=== PATIENT | female | born 1965 | race Caucasian/White ===

== ENCOUNTER → 2018-06-16 | Outpatient (CLI) | payer BC ==
[~2018-06-16] MED LIST: ACEDIPPM PO; AMOX875 PO; CIPR500 PO; CODACE30; GABA100 PO; GABA300 PO; HYDACE10B PO; HYDACE5 PO; HYDACE7.5; HYDACE7.5 PO; HYDR1TAB94 PO; IBUP600 PO; LEVCAR50ER; LEVSOD100; LEVSOD100 PO; LEVSOD112; LEVSOD112 PO; LEVSOD25 PO; LEVSOD75 PO; NAPR500 PO; Norco 5-325 Ta1 EACH PO; Nystatin100000 UN1 PO; OMEP20ER PO; OXYACE5T PO; PAIN RELIEVER500 MG PO; PHENA200 PO; PRED20 PO; PROM25 PO; RANI150 PO; RXHYDACE PO; RXOXYACE PO; RXPHEN200 PO; SULTRIDS PO; [UNRECOGNIZED DRUG - REMARK]
== END | disposition home or self-care (01) ==
LOC: LAB 10:54 → LAB SHORT 10:54
DX: N39.0 Urinary tract infection, site not specified (principal)
CPT/HCPCS: 87077; 87086; 87186

== ENCOUNTER → 2019-03-15 | Outpatient (CLI) | payer BC ==
[2019-03-15 19:30] LABS: BASOPHILS ABSOLUTE AUTO 0.06 K/mm3 (0.00-0.23); BASOPHILS PERCENT AUTO 1 % (0-2); EOSINOPHILS ABSOLUTE AUTO 0.14 K/mm3 (0.00-0.68); EOSINOPHILS PERCENT AUTO 2 % (0-6); Hematocrit 31.3 % (33.0-51.0); Hemoglobin 11.5 g/dL (11.5-16.0); IMMATURE GRAN ABSOLUTE AUTO 0.01 K/mm3 (0.00-0.10); IMMATURE GRAN PERCENT AUTO 0 % (0-1); LYMPHOCYTES ABSOLUTE AUTO 2.33 K/mm3 (0.84-5.20); LYMPHOCYTES PERCENT AUTO 35 % (21-46); MONOCYTES ABSOLUTE AUTO 0.41 K/mm3 (0.16-1.47); MONOCYTES PERCENT AUTO 6 % (4-13); Mean Corpuscular HGB 49.6 pg (26.0-34.0); Mean Corpuscular HGB Conc 36.7 g/dL (31.5-36.5); Mean Corpuscular Volume 135 fL (80-100); Mean Platelet Volume 10.7 fL (9.1-12.4); NEUTROPHILS ABSOLUTE AUTO 3.71 K/mm3 (1.96-9.15); NEUTROPHILS PERCENT AUTO 56 % (41-73); Platelet Count 210 K/mm3 (150-400); RDW Coefficient Variation 13.6 % (11.7-14.2); RDW Standard Deviation 66.8 fL (35.1-46.3); Red Blood Cell Count 2.32 M/mm3 (3.80-5.20); White Blood Cell Count 6.66 K/mm3 (4.00-11.30)
[2019-03-15 20:04] LABS: Alanine Aminotransfer (ALT/SGP 19 U/L (12-78); Albumin, Blood 4.2 g/dL (3.4-5.0); Albumin/Globulin Ratio 1.5 (0.8-1.8); Alk Phos 129 U/L (50-136); Anion Gap 6 mmol/L (6-16); Aspartate Aminotrans (AST/SGOT 14 U/L (12-37); Bilirubin, Total 0.5 mg/dL (0.1-1.0); Blood Urea Nitrogen 12 mg/dL (8-24); Bun/Creatinine Ratio 16.8 (12.0-20.0); CO2, Blood 24 mmol/L (21-32); CPK Creatine Kinase 46 U/L (26-193); Calcium, Blood 8.8 mg/dL (8.5-10.1); Chloride, Blood 110 mmol/L (98-108); Creatinine, Blood 0.71 mg/dL (0.40-1.00); Globulin, Blood 2.8 g/dL (2.2-4.0); Glomerular Filtration Rate >60 (60-); Glucose, Blood 93 mg/dL (70-99); Potassium, Blood 4.4 mmol/L (3.5-5.5); Sodium, Blood 140 mmol/L (136-145)
== END | disposition home or self-care (01) ==
LOC: LAB 18:47 → LAB SHORT 18:47
PROVIDERS: Hospitalist
DX: D51.0 Vitamin B12 deficiency anemia due to intrinsic factor deficiency (principal); G62.9 Polyneuropathy, unspecified; M79.10 Myalgia, unspecified site; M79.606 Pain in leg, unspecified; E55.9 Vitamin D deficiency, unspecified
CPT/HCPCS: 80053; 82306; 82550; 82607; 82746; 85025; 85651

== ENCOUNTER → 2019-06-15 | Outpatient (CLI) | payer BC ==
[2019-06-15 19:47] LABS: Free Thyroxine 1.29 ng/dL (0.70-1.60); Thyroid Stimulating Hormone 0.223 uIU/mL (0.360-4.800)
== END ==
LOC: LAB SHORT 17:00 → LAB 17:00
PROVIDERS: Hospitalist
DX: E03.9 Hypothyroidism, unspecified (principal)
CPT/HCPCS: 84439; 84443

== ENCOUNTER → 2020-10-31 | Outpatient (CLI) | payer SELFPAY ==
[2020-10-31 19:51] LABS: BASOPHILS ABSOLUTE AUTO 0.06 K/mm3 (0.00-0.23); BASOPHILS PERCENT AUTO 1 % (0-2); EOSINOPHILS ABSOLUTE AUTO 0.13 K/mm3 (0.00-0.68); EOSINOPHILS PERCENT AUTO 2 % (0-6); Hematocrit 38.7 % (33.0-51.0); Hemoglobin 13.5 g/dL (11.5-16.0); IMMATURE GRAN ABSOLUTE AUTO 0.02 K/mm3 (0.00-0.10); IMMATURE GRAN PERCENT AUTO 0 % (0-1); LYMPHOCYTES ABSOLUTE AUTO 2.54 K/mm3 (0.84-5.20); LYMPHOCYTES PERCENT AUTO 33 % (21-46); MONOCYTES ABSOLUTE AUTO 0.38 K/mm3 (0.16-1.47); MONOCYTES PERCENT AUTO 5 % (4-13); Mean Corpuscular HGB 41.4 pg (26.0-34.0); Mean Corpuscular HGB Conc 34.9 g/dL (31.5-36.5); Mean Corpuscular Volume 119 fL (80-100); Mean Platelet Volume 9.8 fL (9.1-12.4); NEUTROPHILS ABSOLUTE AUTO 4.67 K/mm3 (1.96-9.15); NEUTROPHILS PERCENT AUTO 60 % (41-73); Platelet Count 251 K/mm3 (150-400); RDW Coefficient Variation 13.6 % (11.7-14.2); RDW Standard Deviation 60.9 fL (35.1-46.3); Red Blood Cell Count 3.26 M/mm3 (3.80-5.20)
[2020-10-31 20:43] LABS: Magnesium, Blood 2.3 mg/dL (1.6-2.4)
[2020-10-31 21:10] LABS: Free Thyroxine 1.25 ng/dL (0.70-1.60)
[2020-10-31 21:13] LABS: Thyroid Stimulating Hormone 0.981 uIU/mL (0.360-4.800)
[2020-10-31 21:29] LABS: Anion Gap 5 mmol/L (6-16); Blood Urea Nitrogen 8 mg/dL (8-24); Bun/Creatinine Ratio 8.8 (12.0-20.0); CO2, Blood 25 mmol/L (21-32); Calcium, Blood 9.3 mg/dL (8.5-10.1); Chloride, Blood 109 mmol/L (98-108); Glomerular Filtration Rate >60 (60-); Glucose, Blood 100 mg/dL (70-99); Potassium, Blood 4.5 mmol/L (3.5-5.5); Sodium, Blood 139 mmol/L (136-145)
== END ==
LOC: LAB 14:37 → LAB SHORT 14:37
PROVIDERS: Hospitalist
DX: E55.9 Vitamin D deficiency, unspecified (principal); R25.2 Cramp and spasm; R53.83 Other fatigue; Z88.5 Allergy status to narcotic agent; Z88.6 Allergy status to analgesic agent
CPT/HCPCS: 80048; 82306; 82607; 83735; 84439; 84443; 85025

== ENCOUNTER → 2023-03-16 | Outpatient (CLI) | payer OTHER ==
[2023-03-16 19:29] LABS: Free Thyroxine 1.07 ng/dL (0.70-1.60); Thyroid Stimulating Hormone 1.75 uIU/mL (0.360-4.800); Triiodothyronine, Free 2.11 pg/mL (2.18-3.98)
== END | disposition home or self-care (01) ==
LOC: LAB SHORT 17:39 → LAB 17:39
PROVIDERS: Hospitalist
DX: E03.9 Hypothyroidism, unspecified (principal); G62.9 Polyneuropathy, unspecified; R73.9 Hyperglycemia, unspecified
CPT/HCPCS: 83036; 84439; 84443; 84481